=== PATIENT | male | born 1975 | race Hispanic/Latino ===

== ENCOUNTER → 2020-10-17 | Outpatient (CLI) | payer BC | END | disposition home or self-care (01) | LOC: RAH 10:00 | PROVIDERS: ATTEND Nurse Practitioner Family | DX: K44.9 Diaphragmatic hernia without obstruction or gangrene (principal); K21.9 Gastro-esophageal reflux disease without esophagitis | CPT/HCPCS: 74240 ==

== ENCOUNTER 2022-07-13 15:17 | Emergency (ER) | payer BC, OTHER ==
[~2022-07-13] VITALS: Ht 180.3 cm; Wt 129.3 kg
[2022-07-13 15:25] VITALS: BP 127/76
[2022-07-13] MEDS ORDERED: TETANUS/DIPHTHERIA TOXOID [ADULT] 0.5 ML VIAL IM ONE (16:30)
[2022-07-13] MEDS ORDERED: OCTYL 2-CYANOACRYLATE 1 EACH TP SCH (17:00)
== END 2022-07-13 17:25 | disposition home or self-care (01) ==
LOC: EDH 15:17
DX: S61.012A Laceration without foreign body of left thumb without damage to nail, initial encounter (principal); W26.8XXA Contact with other sharp object(s), not elsewhere classified, initial encounter; Y93.89 Activity, other specified; Y92.89 Other specified places as the place of occurrence of the external cause; Y99.0 Civilian activity done for income or pay
CPT/HCPCS: 12001; 90471; 90714